=== PATIENT | female | born 1960 | race Caucasian/White ===

== ENCOUNTER → 2016-04-12 | Outpatient (CLI) | payer BC | LOC: MC.RAD 11:37 | DX: Z12.31 Encounter for screening mammogram for malignant neoplasm of breast (principal) ==

== ENCOUNTER → 2018-09-24 | Outpatient (CLI) | payer BC | LOC: MC.RAD 16:30 | DX: Z12.31 Encounter for screening mammogram for malignant neoplasm of breast (principal); N64.89 Other specified disorders of breast ==

== ENCOUNTER → 2018-09-30 | Outpatient (CLI) | payer BC | LOC: MC.RAD 13:59 | DX: Z00.00 Encounter for general adult medical examination without abnormal findings (principal); N64.89 Other specified disorders of breast ==

== ENCOUNTER → 2019-12-21 | Outpatient (CLI) | payer BC | LOC: MC.RAD 16:30 | DX: Z12.31 Encounter for screening mammogram for malignant neoplasm of breast (principal); N63.21 Unspecified lump in the left breast, upper outer quadrant ==

== ENCOUNTER → 2019-12-22 | Outpatient (CLI) | payer BC | LOC: MC.RAD 13:00 | DX: N63.21 Unspecified lump in the left breast, upper outer quadrant (principal) ==

== ENCOUNTER → 2020-01-04 | Outpatient (CLI) | payer BC | LOC: COL.RAD 11:14 | DX: M51.37 Other intervertebral disc degeneration, lumbosacral region (principal); M53.3 Sacrococcygeal disorders, not elsewhere classified ==

== ENCOUNTER → 2020-06-27 | Outpatient (CLI) | payer BC | LOC: MC.RAD 14:00 | DX: N64.89 Other specified disorders of breast (principal); R92.8 Other abnormal and inconclusive findings on diagnostic imaging of breast ==

== ENCOUNTER → 2021-01-25 | Outpatient (CLI) | payer BC | LOC: MC.RAD 14:41 | DX: Z12.31 Encounter for screening mammogram for malignant neoplasm of breast (principal) ==

== ENCOUNTER 2023-02-17 08:26 | Inpatient (IN) | payer BC ==
[2023-02-17] VITALS (13 sets, daily range): BP systolic 111–136; BP diastolic 60–84; PULSE 75–87; TEMP 97.7–98.5
[~2023-02-17] VITALS: Ht 165.1 cm; Wt 59.3 kg
[2023-02-17 09:35] LABS: BASO % 0.4 % (0.0-2.0); GRAN # 7.7 K/mm3 (1.4-6.5); HEMATOCRIT 35.2 % (37.0-47.0); HEMOGLOBIN 11.9 g/dl (12.5-16.0); LYMPH # 0.9 K/mm3 (1.2-3.4); LYMPH % 9.3 % (20.0-51.0); MEAN CELL VOLUME 96 fl (80.0-100.0); MEAN CORPUSCULAR HEMOGLOBIN 32 pg (27-31); MEAN CORPUSCULAR HGB CONC 34 g/dl (33.0-37.0); MEAN PLATELET VOLUME 9.7 fl (7.4-10.4); MONO # 0.8 K/mm3 (0.1-0.6); PLATELET COUNT 270 K/mm3 (130-400); RED BLOOD COUNT 3.67 M/mm3 (4.10-5.30); REDCELL DISTRIBUTION WIDTH-CV 12.4 % (11.5-14.5)
[2023-02-17 09:58] LABS: ALBUMIN 3.7 gm/dL (3.4-4.8); BILIRUBIN,TOTAL 0.7 mg/dL (0.2-1.2); CALCIUM 9.2 mg/dL (8.4-10.2); CREATININE, serum 0.76 mg/dL (0.57-1.11); POTASSIUM 4.2 mmol/L (3.5-4.5); TOTAL PROTEIN 6.9 gm/dL (6.2-8.1)
[2023-02-17 10:07] LABS: PROTHROMBIN TIME 11.1 SECONDS (9.7-12.8)
[2023-02-17] MEDS ORDERED: CELEXA 20MG20 MG/TAB PO (10:47)
[2023-02-17] MEDS ORDERED: ALEVE 220MG220 MG PO (10:48)
[2023-02-17] MEDS ORDERED: TUMS500 MG PO (10:48)
[2023-02-17] MEDS ORDERED: MURO-128 5% OP3.5 GM OP (10:49)
[2023-02-17] MEDS ORDERED: MURO 128 5% OPH15 ML OP (10:50)
--- NOTE | 2023-02-17 11:00 | NUR ---
Patient to room 324 from the ED. A&Ox4. VSS. IV CDI. reporting pain in LF hip. at the bedside. Nurse oriented the patient to location, call light, and room. Patient NPO. No further needs expressed. willard intact. Call light within reach
--- NOTE | 2023-02-17 17:35 | NUR ---
Patient to room 324 from the PACU. A&Ox4. VSS, post op VS monitored. IV CDI, fluids by gravity. Family at the bedside. Dressing LF leg CDI. Miranda intact. Nurse oriented the patient. No further needs expressed. Call light within reach
--- NOTE | 2023-02-17 20:00 | NUR ---
PT IN BED, HAS DRY DRSG TO LT HIP W/ICE PACK IN PLACE. PT DENIES NEED FOR STRONGER PAIN MEDS THAN ES TYLENOL. HAS IVF TO LAC, TAKING ORAL FLUIDS WELL. SCDS ON BILATERALLY. IS ALERT AND ORIENTED X4. POST OP VITALS ALMOST COMPLETE.
--- NOTE | 2023-02-17 21:30 | NUR ---
PT RESTING IN BED. POST OP VS COMPLETE.
[2023-02-18] VITALS (7 sets, daily range): BP systolic 124–136; BP diastolic 72–78; PULSE 69–79; TEMP 97.6–98
--- NOTE | 2023-02-18 | NUR ---
SCHEDULED ES TYLENOL GIVEN FOR LT HIP PAIN. REPORTS MINIMAL PAIN AND HAS NO REQUEST FOR STRONGER PAIN MEDS.
--- NOTE | 2023-02-18 06:00 | NUR ---
SCHEDULED ES TYLENOL GIVEN. ICE PACK REPLACED TO LT HIP. DENIES NEED FOR STRONGER PAIN MEDS.
[2023-02-18 07:55] LABS: BASO % 0.1 % (0.0-2.0); EOS % 0.1 % (0.0-4.0); GRAN # 8.2 K/mm3 (1.4-6.5); GRAN % 89.7 % (42.2-75.2); HEMOGLOBIN 11.7 g/dl (12.5-16.0); LYMPH # 0.5 K/mm3 (1.2-3.4); LYMPH % 5.3 % (20.0-51.0); MEAN CELL VOLUME 96 fl (80.0-100.0); MEAN CORPUSCULAR HEMOGLOBIN 32 pg (27-31); MEAN CORPUSCULAR HGB CONC 34 g/dl (33.0-37.0); MEAN PLATELET VOLUME 10.2 fl (7.4-10.4); MONO # 0.4 K/mm3 (0.1-0.6); MONO % 4.7 % (1.7-9.3); PLATELET COUNT 267 K/mm3 (130-400); RED BLOOD COUNT 3.61 M/mm3 (4.10-5.30); REDCELL DISTRIBUTION WIDTH-CV 12.3 % (11.5-14.5)
[2023-02-18 08:14] LABS: HEMATOCRIT 34.5 % (37.0-47.0)
[2023-02-18 08:16] LABS: CALCIUM 8.7 mg/dL (8.4-10.2); CREATININE, serum 0.72 mg/dL (0.57-1.11)
--- NOTE | 2023-02-18 09:00 | NUR ---
PT UP TO RECLINER FOR BREAKFAST. PT WORKED WITH THERAPY THIS AM. PAIN WELL CONTROLLED WITH PO MEDS. DRESSINGS TO LEFT HIP CDI. PT IS A/O X4. DAVIS TO DD WITH CLEAR YELLOW URINE IN BAG.
--- NOTE | 2023-02-18 09:17 | NUR ---
Initial visit; Patient thanked Paper Plate Machine Tender for stopping and and visiting and offering God's blessings. Patient states she is doing better now.
--- NOTE | 2023-02-18 09:30 | NUR ---
Senior Sales Representative met with Patient at bedside to conduct Care Managment Assessment and discuss discharge planning. Patient lives with her between [place], [place] and [place], [place]. PAtient is established with Dr. Escudero for PCP and is covered by [facility] for insurance. Patient requests discharge medications be sent to [facility]. Patient denies the use of DME and endorses independency with ADL/IADLs prior to admitting injury. Senior Sales Representative spoke with PT and OT out of room who recommend Patient discharge home when medically ready. SW briefed HH PT and OUT PT with Patient in the case that she has concerns, PT recommendation in chart is home with family assist. PAtient states that her DPOAHC is her . Patient is reviewing PT options at this time, SW will follow-up with Patient on PT interest.
[2023-02-18] MEDS ORDERED: ASPI325T6 PO (10:51)
[2023-02-18] MEDS ORDERED: ROXICODONE 55 MG/TAB PO (10:52)
[2023-02-18] MEDS ORDERED: OSCAL 500 TAB500 MG PO (10:53)
[2023-02-18] MEDS ORDERED: VITAMIN C500 MG PO (10:53)
[2023-02-18] MEDS ORDERED: TYLENOL 500MG500 MG PO (10:53)
[2023-02-18] MEDS ORDERED: DUO-KAPS1 CAP PO (10:54)
--- NOTE | 2023-02-18 15:00 | NUR ---
DISCHARGE INSTRUCTIONS REVIEWED WITH PT AND . QUESTIONS ANSWERED. REVIEWED MEDICATIONS. PT LEFT UNIT PER WHEEL CHAIR WITH STAFF.
== END 2023-02-18 15:02 | disposition home or self-care (01) | DRG 482 ==
LOC: COL.ER 08:26 → SURG 09:23
PROVIDERS: Emergency Medicine; Orthopaedic Surgery; Physician Assistant; ADMIT Hospitalist
PROC: 0QS734Z Reposition Left Upper Femur with Internal Fixation Device, Percutaneous Approach (ICD-10-PCS; principal; 2023-02-17 15:00)
DX: S72.012A Unspecified intracapsular fracture of left femur, initial encounter for closed fracture (principal); F32.A Depression, unspecified; W01.0XXA Fall on same level from slipping, tripping and stumbling without subsequent striking against object, initial encounter; F41.9 Anxiety disorder, unspecified; S63.502A Unspecified sprain of left wrist, initial encounter; D64.9 Anemia, unspecified; M19.032 Primary osteoarthritis, left wrist; Y93.E1 Activity, personal bathing and showering; Y92.091 Bathroom in other non-institutional residence as the place of occurrence of the external cause; Z90.710 Acquired absence of both cervix and uterus; Z79.899 Other long term (current) drug therapy; Z23 Encounter for immunization
CPT/HCPCS: A4314; A9284; C1713; J0690; J1100; J2250; J2270; J2704; J2795; J3010

== ENCOUNTER → 2023-07-01 | Outpatient (CLI) | payer BC ==
[~2023-07-01] MED LIST: ALEVE 220MG220 MG PO; ASPI325T6 PO; CELEXA 20MG20 MG/TAB PO; DUO-KAPS1 CAP PO; MURO 128 5% OPH15 ML OP; MURO-128 5% OP3.5 GM OP; OSCAL 500 TAB500 MG PO; ROXICODONE 55 MG/TAB PO; TUMS500 MG PO; TYLENOL 500MG500 MG PO; VITAMIN C500 MG PO
== END ==
LOC: MC.RAD 14:00
DX: Z12.31 Encounter for screening mammogram for malignant neoplasm of breast (principal)